=== PATIENT | female | born 1940 | race Caucasian/White ===

== ENCOUNTER → 2016-11-18 | Outpatient (REF) ==
[~2016-11-18] MED LIST: ATIVAN 0.50.5 MG/TAB PO; BACTRIM DS 8001 TAB PO; BENADRYL; COZAAR; CRESTOR10 MG PO; INDOMETHACIN25 MG PO; LIDODERM PATCH TP; LORATADINE10 MG PO; LOTENSIN10 MG PO; MAXZIDE 50 MG-71 TAB PO; PREDNISONE10 MG PO; PREDNISONE20 MG PO; PREMARIN 0.9MG0.9 MG PO; PROTONIX 40MG T40 MG PO; SYNTHROID0.137 MG PO; TRIAMTERENE AND1 TA1 PO; TUSS PO
== END ==
LOC: ZLAB.WCH 11:38
DX: Z01.89 Encounter for other specified special examinations (principal)

== ENCOUNTER → 2017-03-22 | Outpatient (REF) | LOC: ZLAB.WCH 08:55 | DX: Z01.89 Encounter for other specified special examinations (principal) ==

== ENCOUNTER → 2017-08-18 | Outpatient (REF) | LOC: ZLAB.WCH 19:08 | DX: Z01.89 Encounter for other specified special examinations (principal) ==

== ENCOUNTER → 2018-06-09 | Outpatient (REF) | LOC: ZLAB.WCH 14:09 | DX: Z01.89 Encounter for other specified special examinations (principal) ==

== ENCOUNTER 2018-08-10 10:40 | Emergency (ER) | payer MEDICARE, OTHER ==
[~2018-08-10] VITALS: Ht 162.6 cm; Wt 69.1 kg
[2018-08-10 10:43] VITALS: TEMP 98.9
[2018-08-10 11:25] LABS: BASO % 0.5 % (0.0-2.0); EOS # 0.1 (0.0-0.7); EOS % 1.9 % (0-4.0); GRAN # 2.5 (1.4-6.5); GRAN % 59.5 % (42.2-75.2); HEMOGLOBIN 11.8 g/dl (12.5-16.0); LYMPH # 1.1 (1.2-3.4); LYMPH % 25.5 % (20.0-51.0); MEAN CELL VOLUME 87 fl (80.0-100.0); MEAN CORPUSCULAR HEMOGLOBIN 30 pg (27.0-31.0); MEAN CORPUSCULAR HGB CONC 34 g/dl (33.0-37.0); MEAN PLATELET VOLUME 9.5 fl (7.4-10.4); MONO # 0.5 (0.1-0.6); MONO % 12.6 % (1.7-9.3); PLATELET COUNT 180 K/mm3 (130-400); RED BLOOD COUNT 3.97 M/mm3 (4.10-5.30); REDCELL DISTRIBUTION WIDTH-CV 12.5 % (11.5-14.5)
[2018-08-10 11:27] LABS: HEMATOCRIT 34.5 % (37.0-47.0)
[2018-08-10 11:39] LABS: ALANINE AMINOTRANSFERASE 36 U/L (9-52); ALBUMIN 3.7 gm/dL (3.5-5.0); ALKALINE PHOSPHATASE 43 U/L (50-136); ANION GAP 4 mmol/L (7-16); AST,SGOT 18 U/L (15-37); BILIRUBIN,TOTAL 0.6 mg/dL (0.0-1.0); BLOOD UREA NITROGEN 26 mg/dL (7-17); CALCIUM 9.2 mg/dL (8.4-10.2); CARBON DIOXIDE 27 mmol/L (22-30); CHLORIDE 106 mmol/L (98-107); CREATININE, serum 0.71 mg/dL (0.52-1.25); GLUCOSE 95 mg/dL (74-106); LIPASE 23 U/L (23-300); POTASSIUM 3.6 mmol/L (3.4-5.0); SODIUM 137 mmol/L (137-145); TOTAL PROTEIN 6.3 gm/dL (6.4-8.2)
[2018-08-10 11:45] LABS: COLLECTION METHOD CLEAN CATCH
[2018-08-10 11:52] LABS: TROPONIN-I < 0.012 ng/mL (0.000-0.034)
[2018-08-10 11:58] LABS: MUCOUS Present /lpf; PH 6 (5-8); URINE APPEARANCE Clear; URINE BACTERIA None Seen /hpf; URINE BILIRUBIN Negative (NEGATIVE); URINE BLOOD Negative (NEGATIVE); URINE COLOR Yellow; URINE GLUCOSE Negative (NEGATIVE); URINE KETONE Negative (NEGATIVE); URINE LEUKOCYTE ESTERASE Negative (NEGATIVE); URINE NITRATE Negative (NEGATIVE); URINE PROTEIN(semi-quant) Negative (NEGATIVE); URINE RBC 0-2 /hpf; URINE UROBILINOGEN Negative (NEGATIVE)
[2018-08-10] MEDS ORDERED: ZOFRAN ODT8 MG PO ×2 (12:13→13:46)
[2018-08-10] MEDS ORDERED: PROTONIX 40MG T40 MG PO (13:26)
[2018-08-10 13:36] VITALS: BP 164/71; PULSE 71
[2018-08-10] MEDS ORDERED: NEURONTIN300 MG/CAP PO (13:39)
[2018-08-10] MEDS ORDERED: COZAAR100 MG PO (13:39)
[2018-08-10] MEDS ORDERED: NORCO 325 MG-101 TAB PO (13:40)
[2018-08-10] MEDS ORDERED: CELEBREX 200MG200 MG PO (13:40)
[2018-08-10] MEDS ORDERED: RESTASIS0.05% (13:41)
== END 2018-08-10 13:57 | disposition home or self-care (01) ==
LOC: COL.ER 10:40
PROVIDERS: Emergency Medicine
DX: N28.89 Other specified disorders of kidney and ureter (principal); R11.2 Nausea with vomiting, unspecified; R10.13 Epigastric pain; Z90.89 Acquired absence of other organs
CPT/HCPCS: J2270; J2405; J7040; Q9967

== ENCOUNTER → 2018-08-31 | Outpatient (CLI) | payer MEDICARE, OTHER ==
[~2018-08-31] VITALS: Ht 162.6 cm; Wt 69.3 kg
[~2018-08-31] MED LIST changes: +ARICEPT 5MG PO; +CELEBREX 200MG200 MG PO; +CLARITIN 1010 MG/TAB PO; +COZAAR100 MG PO; +CRESTOR 10MG10 MG PO; -CRESTOR10 MG PO; +NAMENDA5 MG PO; +NEURONTIN300 MG/CAP PO; +NORCO 325 MG-101 TAB PO; +NORVASC2.5 MG PO; +RESTASIS MULTI5.5 ML OP; +RESTASIS0.05%; +ZOFRAN ODT8 MG PO
[2018-08-31 07:22] LABS: MEAN CELL VOLUME 89 fl (80.0-100.0); MEAN CORPUSCULAR HEMOGLOBIN 29 pg (27.0-31.0); MEAN CORPUSCULAR HGB CONC 33 g/dl (33.0-37.0); MEAN PLATELET VOLUME 9.8 fl (7.4-10.4); PLATELET COUNT 207 K/mm3 (130-400); REDCELL DISTRIBUTION WIDTH-CV 12.6 % (11.5-14.5)
[2018-08-31 07:25] VITALS: BP 189/88; PULSE 72
[2018-08-31 07:32] LABS: HEMATOCRIT 36.3 % (37.0-47.0)
[2018-08-31 07:33] LABS: BILIRUBIN,TOTAL 0.4 mg/dL (0.0-1.0); CALCIUM 9.2 mg/dL (8.4-10.2); CREATININE, serum 0.77 mg/dL (0.52-1.25); POTASSIUM 3.6 mmol/L (3.4-5.0); TOTAL PROTEIN 6.9 gm/dL (6.4-8.2)
[2018-08-31 08:17] VITALS: BP 194/93; PULSE 64
[2018-08-31 08:20] VITALS: BP 152/77; PULSE 89
[2018-08-31 08:21] VITALS: BP 169/82; PULSE 86
[2018-08-31 08:22] VITALS: BP 150/58; PULSE 80
[2018-08-31 08:23] VITALS: BP 157/75; PULSE 82
--- NOTE | 2018-08-31 08:32 | NUR ---
PT HAD LAB DRAWN, EKG DONE AND CXR DONE FOR PRE SURGERY BY DR Karin MARINELLI
== END ==
LOC: COL.CARD 06:30
PROVIDERS: Urology
DX: Z01.818 Encounter for other preprocedural examination (principal); C64.2 Malignant neoplasm of left kidney, except renal pelvis; R07.9 Chest pain, unspecified; R06.02 Shortness of breath
CPT/HCPCS: A9502; J2785

== ENCOUNTER → 2019-05-02 | Outpatient (CLI) | payer MEDICARE, OTHER ==
[~2019-05-02] MED LIST changes: +B-121000 MCG PO; +LIDODERM 5% PATC1 EA TP; +VITAMIN D31000 I1 PO
== END ==
LOC: COL.RAD 15:00
DX: D30.02 Benign neoplasm of left kidney (principal)